=== PATIENT | male | born 1985 | race Caucasian/White ===

== ENCOUNTER 2019-01-10 09:24 | Outpatient (CLI) | payer SELFPAY | END 2019-01-10 09:25 | disposition home or self-care (01) | LOC: C.LAB 09:24 | DX: Z00.01 Encounter for general adult medical examination with abnormal findings (principal); Z68.28 Body mass index [BMI] 28.0-28.9, adult; Z71.3 Dietary counseling and surveillance; M79.675 Pain in left toe(s); Z87.891 Personal history of nicotine dependence ==